=== PATIENT | male | born 1995 | race African-American/Black ===

== ENCOUNTER 2017-06-12 12:32 | Emergency (ER) | payer SELFPAY ==
[~2017-06-12] VITALS: Ht 175.3 cm; Wt 89.0 kg
[2017-06-12 13:07] VITALS: BP 123/63; PULSE 92; RESP 18; TEMP 98.1; O2SAT 98
--- NOTE | 2017-06-12 15:12 | RADRPT ---
EXAM DATE/TIME: 06/12/2017 14:58 [place] COMPARISON: No previous studies available for comparison. INDICATIONS : Right knee pain for 3 days. Pain after playing football. MEDICAL HISTORY : None. SURGICAL HISTORY : None. ENCOUNTER: Initial ACUITY: 3 days PAIN SCORE: 7/10 LOCATION: Right knee. FINDINGS: Four view examination of the right knee demonstrates no evidence of fracture or dislocation. Bony mi neralization is normal. The articular surfaces are intact. Small suprapatellar joint effusion. CONCLUSION: 1. Small suprapatellar joint effusion. 2. No acute fracture or dislocation. Boubacar Pearson MD on June 12, 2017 at 15:09 Board Certified Radiologist. This report was verified electronically.
[2017-06-12] MEDS ORDERED: IBUP-232 PO (15:41)
--- NOTE | 2017-06-12 15:41 | PD ---
HPI . Right knee pain Chief Complaint: Musculoskeletal Complaint Time Seen by Provider: 14:37 Travel History International Travel<30 days: No Contact w/Intl Traveler<30days: No Traveled to known affect area: No History of Present Illness HPI 21-year-old male patient presents emergency department for evaluation of right knee pain that started last weekend when he was playing football. Patient states he thinks he hyperextended his knee. Patient denies any other injuries during this from a game. Has no major medical history visiting any daily medication. Patient has been ambulatory on the right knee without a limp. PFSH Social History Alcohol Use: No Tobacco Use: No Substance Use: No Allergies-Medications (Allergen,Severity, Reaction): Coded Allergies: No Known Allergies (Verified Allergy, Unknown, 06/12/17) Reported Meds & Prescriptions Reported Meds & Active Scripts Active Ibuprofen 600 Mg Tab 600 Mg PO Q8H PRN Review of Systems Except as stated in HPI: all other systems reviewed are Neg Physical Exam Narrative GENERAL: Well-nourished, well-developed 21-year-old male patient in no acute distress. Nontoxic appearing. SKIN: Focused skin assessment warm/dry. HEAD: Normocephalic. Atraumatic. EYES: No scleral icterus. No injection or drainage. NECK: Supple, trachea midline. No JVD or lymphadenopathy. CARDIOVASCULAR: Regular rate and rhythm without murmurs, gallops, or rubs. Pedal pulses +2 bilaterally. RESPIRATORY: Breath sounds equal bilaterally. No accessory muscle use. GASTROINTESTINAL: Abdomen soft, non-tender, nondistended. MUSCULOSKELETAL: Full range of motion with extension and flexion of right knee. Right knee mildly edematous. No cyanosis, ecchymosis, obvious deformity or erythema noted. BACK: Nontender without obvious deformity. No CVA tenderness. Data Data Last Documented VS Vital Signs Date Time Temp Pulse Resp B/P (MAP) Pulse Ox O2 Delivery O2 Flow Rate FiO2 06/12/17 13:07 98.1 92 18 123/63 (83) 98 Orders Orders Knee, Complete (4vws) (06/12/17 14:37) Ice/Cold Pack (06/12/17 14:37) Ibuprofen (Motrin) (06/12/17 15:45) Splint Or Brace Apply/Monitor (06/12/17 15:42) Crutches (06/12/17 15:42) Ed Discharge Order (06/12/17 15:42) [facility] Medical Decision Making Medical Screen Exam Complete: Yes Emergency Medical Condition: Yes Differential Diagnosis Differential diagnoses include but not limited to knee effusion, knee sprain, knee contusion, ligamental injury Narrative Course 21-year-old male patient presents emergency department for evaluation of right knee pain. X-ray of the right knee ordered and pending. Ice applied to the right knee. Ibuprofen ordered for pain management. X-ray of the right knee shows small suprapatellar joint effusion, no fracture or dislocation. Patient discharged home with prescription for ibuprofen, instructions for rice therapy, Braulio wrap to right knee and crutches. Patient instructed to return the emergency Department with any worsening condition but otherwise follow-up primary care or orthopedics if pain is persistent. Last Impressions Knee X-Ray 06/12/17 1437 Signed Impressions: Service Date/Time: Monday, June 12, 2017 14:58 - CONCLUSION: 1. Small suprapatellar joint effusion. 2. No acute fracture or dislocation. Boubacar Pearson MD Diagnosis Primary Impression: Knee pain Qualified Codes: M25.561 - Pain in right knee Referrals: Orthopedist Primary Care Physician Patient Instructions: General Instructions, Knee Pain (ED) Additional Instructions: Please return to emergency department if your symptoms return or worsen. Follow up with your primary care provider. Follow-up with orthopedist if pain persists. May take [id number] ibuprofen as needed for pain or swelling. Rice therapy to right knee, rest, ice, Braulio wrap with activity and elevate with resting. Med/Other Pt SpecificInfo: Prescription(s) given Scripts Ibuprofen (Ibuprofen) 600 Mg Tab 600 MG PO Q8H Y for PAIN, #20 TAB 0 Refills Prov: Jana Vegas Nathaly RODRIGUEZ 06/12/17 Disposition: 01 DISCHARGE HOME Condition: Stable Jana Vegas Nathaly RODRIGUEZ Jun 12, 2017 15:41
[2017-06-12] MEDS ORDERED: IBUPROFEN 600 MG TAB PO ONE (15:45)
== END 2017-06-12 16:02 | disposition home or self-care (01) ==
LOC: PHED 12:32 → PHEFT 16:02
DX: M25.561 Pain in right knee (principal)
CPT/HCPCS: 73564; 99283; E0113